=== PATIENT | female | born 1965 | race Hispanic/Latino ===

== ENCOUNTER 2022-09-30 16:05 | Emergency (ER) | payer BC ==
[~2022-09-30] VITALS: Ht 157.5 cm; Wt 71.7 kg
[2022-09-30] MEDS ORDERED: CELEBREX100 MG PO (18:08)
== END 2022-09-30 18:30 | disposition home or self-care (01) ==
LOC: FSED 16:14
DX: M25.562 Pain in left knee (principal); X50.1XXA Overexertion from prolonged static or awkward postures, initial encounter; E03.9 Hypothyroidism, unspecified
CPT/HCPCS: 99283